=== PATIENT | female | born 1955 | race Caucasian/White ===

== ENCOUNTER → 2023-03-13 | Outpatient (REF) | payer MEDICARE ==
[~2023-03-13] MED LIST: IOPAMIDOL 370 MG/ML 100 ML INFUS..BTL INJ ONE
[2023-03-13 08:16] LABS: CREATININE, SERUM 0.86 mg/dL (0.57-1.11)
== END ==
LOC: CT 06:30
PROVIDERS: ATTEND Nurse Practitioner
DX: K29.60 Other gastritis without bleeding (principal)
CPT/HCPCS: 36415; 74177; 82565; 84520; Q9967